=== PATIENT | female | born 1980 | race Caucasian/White ===

== ENCOUNTER 2023-09-23 11:38 | Outpatient (CLI) | payer BC, SELFPAY | END 2023-09-23 11:39 | disposition home or self-care (01) | PROVIDERS: PCP Emergency Medicine; Visit Provider Emergency Medicine | DX: E78.5 Hyperlipidemia, unspecified (principal); R73.01 Impaired fasting glucose; I10 Essential (primary) hypertension; D50.9 Iron deficiency anemia, unspecified | CPT/HCPCS: 80053; 84443 ==

== ENCOUNTER 2023-12-24 09:41 | Outpatient (CLI) | payer BC, SELFPAY | END 2023-12-24 09:42 | disposition home or self-care (01) | LOC: NFLDREF 12-25 18:56 | PROVIDERS: PCP Emergency Medicine; Referring Provider Emergency Medicine; Visit Provider Emergency Medicine | DX: E78.5 Hyperlipidemia, unspecified (principal) | CPT/HCPCS: 80061 ==

== ENCOUNTER 2024-05-08 08:23 | Outpatient (CLI) | payer BC, SELFPAY | END 2024-05-08 08:24 | disposition home or self-care (01) | LOC: NFLDREF 05-10 02:57 | PROVIDERS: PCP Emergency Medicine; Referring Provider Emergency Medicine; Visit Provider Emergency Medicine | DX: E78.5 Hyperlipidemia, unspecified (principal); I10 Essential (primary) hypertension; R73.01 Impaired fasting glucose | CPT/HCPCS: 80048; 80061 ==

== ENCOUNTER 2024-05-11 08:31 | Outpatient (CLI) | payer BC, SELFPAY ==
[2024-05-13 16:18] LABS: HPV Source Cervical; HPV, High Risk by TMA Not Detected
== END 2024-05-11 08:32 | disposition home or self-care (01) ==
PROVIDERS: PCP Emergency Medicine; Visit Provider Emergency Medicine
DX: Z12.4 Encounter for screening for malignant neoplasm of cervix (principal); Z11.51 Encounter for screening for human papillomavirus (HPV)
CPT/HCPCS: 87624; 87625; 88141; 88142